=== PATIENT | male | born 1990 | race Caucasian/White ===

== ENCOUNTER 2016-08-08 15:53 | Inpatient (IN) | payer BC, MEDICAID, OTHER ==
[~2016-08-08] VITALS: Ht 182.9 cm; Wt 68.5 kg
[2016-08-08 16:47] LABS: Hematocrit 54.7 % (41.0-53.0); Mean Corpuscular Hemoglobin 31.3 pg (28.0-32.0); Mean Corpuscular Hgb Conc. 32.8 g/dL (32.0-36.0); Mean Corpuscular Volume 95.3 fL (80.0-100.0); Mean Platelet Volume 8.9 fL (7.4-10.4); Platelet Count (auto) 242 10^3/uL (140-450); Red Cell Distribution Width 11.8 % (11.6-16.0); SUSPECT VIEW TRANSMISSION; White Blood Cell 20.3 10^3/uL (4.4-10.8)
[2016-08-08 17:00] LABS: INR 1.11 (0.9-1.15); Partial Thromboplastin Time 26.5 sec (22.64-33.71); Prothrombin Time 11.4 sec (9.37-12.3)
[2016-08-08] MEDS ORDERED: SODIUM CHLORIDE 0.9% 1,000 ML IV ONE ×2 (17:00→21:00)
[2016-08-08] MEDS ORDERED: ADENOSINE 6 MG/2 ML INJ IV ONE ×3 (17:00→17:30)
[2016-08-08 17:01] LABS: Albumin 4.6 g/dL (3.4-5.0); BUN/Creatinine Ratio 13.6; Calcium 9.8 mg/dL (8.5-10.1); Metamyelocytes % 0; Myelocytes % 0; Promyelocytes % 0; Reactive Lymphocytes 0; Total Protein 8.5 g/dL (6.4-8.2)
[2016-08-08 18:47] LABS: Lactic Acid 2.6 mmol/L (0.4-2.0)
[2016-08-08 19:09] LABS: REFLEX LACTIC ACID YES OR NO YES
[2016-08-08] MEDS: SODIUM CHLORIDE 0.9% 1,000 ML IV SCH (21:02)
[2016-08-08] MEDS: ENOXAPARIN SOD 40 MG/0.4 ML SYRINGE SC SCH (21:11)
[2016-08-08] MEDS ORDERED: NITROGLYCERIN 0.4 MG SL TAB SL PRN (21:15)
[2016-08-08] MEDS ORDERED: LEVOFLOXACIN 500MG 100 ML IV ONE (21:15)
[2016-08-08] MEDS ORDERED: HYDROcodone-ACET 5/325MG TAB PO PRN (21:15)
[2016-08-08] MEDS ORDERED: MORPHINE SULF INJ 2 MG/ML SYRINGE 1ML IV PRN (21:15)
[2016-08-08] MEDS ORDERED: ACETAMINOPHEN 325 MG TAB PO PRN (21:15)
[2016-08-08] MEDS ORDERED: ONDANSETRON HCL 4 MG/2 ML VIAL IV PRN (21:15)
[2016-08-08] MEDS ORDERED: METOPROLOL TARTRATE 1MG/1ML-5ML VIAL IV ONE (21:15)
[2016-08-08] MEDS ORDERED: cefTRIAXone 1GM/50ML D5W 50 ML IV ONE (21:15)
[2016-08-08 21:47] LABS: Platelet Estimate Adequate; RBC Morphology Normal
[2016-08-08] MEDS: FAMOTIDINE 20 MG TAB PO SCH (21:51)
[2016-08-08 21:57] LABS: Urine Color Yellow (Yellow)
[2016-08-08 21:58] LABS: Urine Bilirubin Negative (Negative); Urine Blood Negative /uL (Negative); Urine Glucose Normal (Normal); Urine Ketone 4+ (Negative); Urine Nitrite Negative (Negative); Urine RBC 1 /hpf (0 - 3); Urine Squamous Epithelial Cell FEW /hpf (<5)
[2016-08-08 21:59] LABS: Urine Hyaline Cast MOD /lpf (0 - 2); Urine Mucus FEW (None Seen)
[2016-08-08 22:01] LABS: REFLEX LACTIC ACID YES OR NO NO
[2016-08-08] MEDS: MORPHINE SULF INJ 2 MG/ML SYRINGE 1ML IV PRN (22:05)
[2016-08-08 22:30] VITALS: BP 161/93
[2016-08-08 23:23] VITALS: BP 161/93
[2016-08-08 23:35] VITALS: BP 147/67
[2016-08-09] VITALS (8 sets, daily range): BP systolic 135–164; BP diastolic 63–106
[2016-08-09] MEDS: FAMOTIDINE 20 MG TAB PO SCH ×2 (08:57→21:27)
[2016-08-09] MEDS ORDERED: cefTRIAXone 1GM/50ML D5W 50 ML IV SCH (09:00)
[2016-08-09 09:07] LABS: Basophils # (auto) 0 uL; Basophils % (auto) 0.2 % (0.0-2.0); Eosinophils # (auto) 0.1 uL; Eosinophils % (auto) 0.6 % (0.0-7.0); Hematocrit 45.9 % (41.0-53.0); Hemoglobin 15.3 g/dL (13.5-17.5); Lymphocytes # (auto) 1.7 uL; Lymphocytes % (auto) 14.2 % (10.0-50.0); Mean Corpuscular Hemoglobin 31.8 pg (28.0-32.0); Mean Corpuscular Hgb Conc. 33.3 g/dL (32.0-36.0); Mean Corpuscular Volume 95.3 fL (80.0-100.0); Mean Platelet Volume 9.1 fL (7.4-10.4); Monocytes # (auto) 0.9 uL; Monocytes % (auto) 7.4 % (0.0-12.0); Neutrophils % (auto) 77.6 % (37.0-80.0); Platelet Count (auto) 167 10^3/uL (140-450); Red Cell Distribution Width 11.9 % (11.6-16.0); White Blood Cell 11.6 10^3/uL (4.4-10.8)
[2016-08-09] MEDS: MORPHINE SULF INJ 2 MG/ML SYRINGE 1ML IV PRN ×2 (09:12→16:19)
[2016-08-09 09:27] LABS: Albumin 3.5 g/dL (3.4-5.0); BUN/Creatinine Ratio 16.5; Calcium 8.2 mg/dL (8.5-10.1); Potassium 3.4 mmol/L (3.5-5.1); Total Protein 6.4 g/dL (6.4-8.2)
[2016-08-09] MEDS ORDERED: LEVOFLOXACIN 500MG 100 ML IV SCH (10:00)
[2016-08-09] MEDS: SODIUM CHLORIDE 0.9% 1,000 ML IV SCH ×2 (12:08→22:33)
[2016-08-09] MEDS ORDERED: POTASSIUM CHL 20MEQ/100ML 100 ML IV ONE (14:00)
[2016-08-09] MEDS ORDERED: LABETALOL HCL 5 MG/ML 4ML SYRINGE IV PRN (20:30)
[2016-08-09] MEDS: ENOXAPARIN SOD 40 MG/0.4 ML SYRINGE SC SCH (21:27)
[2016-08-09] MEDS: TEMAZEPAM 15 MG CAP PO PRN (22:50)
[2016-08-10 05:00] VITALS: BP 143/76
[2016-08-10 07:10] LABS: Basophils # (auto) 0 uL; Basophils % (auto) 0.5 % (0.0-2.0); Eosinophils # (auto) 0.2 uL; Hemoglobin 14.8 g/dL (13.5-17.5); Lymphocytes # (auto) 2.8 uL; Lymphocytes % (auto) 32.3 % (10.0-50.0); Mean Corpuscular Hemoglobin 31.6 pg (28.0-32.0); Mean Corpuscular Hgb Conc. 32.8 g/dL (32.0-36.0); Mean Corpuscular Volume 96.6 fL (80.0-100.0); Mean Platelet Volume 9.3 fL (7.4-10.4); Monocytes # (auto) 0.5 uL; Monocytes % (auto) 5.7 % (0.0-12.0); Neutrophils # (auto) 5.2 uL; Neutrophils % (auto) 59.5 % (37.0-80.0); Platelet Count (auto) 154 10^3/uL (140-450); Red Cell Distribution Width 12.3 % (11.6-16.0); White Blood Cell 8.7 10^3/uL (4.4-10.8)
[2016-08-10 07:19] LABS: Albumin 3.3 g/dL (3.4-5.0); BUN/Creatinine Ratio 15.5; Calcium 8.3 mg/dL (8.5-10.1); Potassium 3.6 mmol/L (3.5-5.1)
[2016-08-10 07:21] LABS: Bilirubin, Total 0.8 mg/dL (0.2-1.0); Total Protein 6.4 g/dL (6.4-8.2)
[2016-08-10 08:00] VITALS: BP 136/71
[2016-08-10 08:44] VITALS: BP 136/71
[2016-08-10] MEDS ORDERED: METOPROLOL TARTRATE 50 MG TAB PO ONE (09:15)
[2016-08-10] MEDS: PANTOPRAZOLE 40 MG TAB PO SCH (10:18)
[2016-08-10] MEDS: LISINOPRIL 10 MG TAB PO SCH (10:18)
[2016-08-10] MEDS: SODIUM CHLORIDE 0.9% 1,000 ML IV SCH ×2 (10:32→23:02)
[2016-08-10 13:00] VITALS: BP 147/71
[2016-08-10 17:26] VITALS: BP 149/74
[2016-08-10 22:00] VITALS: BP 148/72
[2016-08-10] MEDS: TEMAZEPAM 15 MG CAP PO PRN (23:49)
[2016-08-11 05:00] VITALS: BP 125/63
[2016-08-11 08:49] VITALS: BP 125/63
[2016-08-11 08:57] VITALS: BP 149/74
[2016-08-11] MEDS: PANTOPRAZOLE 40 MG TAB PO SCH (09:28)
[2016-08-11] MEDS: LISINOPRIL 10 MG TAB PO SCH (09:29)
[2016-08-11 10:31] VITALS: BP 149/84
== END 2016-08-11 09:50 | disposition home or self-care (01) | DRG 241 ==
LOC: ER 15:56 → TELE 15:57 → TELE-CENTR 22:12 → CENTRAL 08-11 02:34
PROVIDERS: ADMIT Internal Medicine; ATTEND Internal Medicine
DX: K29.70 Gastritis, unspecified, without bleeding (principal); E87.1 Hypo-osmolality and hyponatremia; E87.8 Other disorders of electrolyte and fluid balance, not elsewhere classified; E86.0 Dehydration; I10 Essential (primary) hypertension; F10.10 Alcohol abuse, uncomplicated; R07.89 Other chest pain; E87.6 Hypokalemia; F12.90 Cannabis use, unspecified, uncomplicated; F17.210 Nicotine dependence, cigarettes, uncomplicated; Z88.0 Allergy status to penicillin
CPT/HCPCS: 36415; 71010; 76705; 80053; 80320; 81001; 83605; 83690; 84443; 84484; 85007; 85025; 85027; 85379; 85610; 85730; 87040; 93005; 93306; 96361; 96365; 96375; 99291; G0434; J0153; J1956; J2405; J3480; J3490

== ENCOUNTER 2016-11-22 20:58 | Emergency (ER) | payer MEDICAID ==
[~2016-11-22] VITALS: Ht 182.9 cm; Wt 72.6 kg
[2016-11-22 21:54] VITALS: BP 115/55
== END 2016-11-23 00:31 | disposition left against medical advice (07) ==
LOC: ER 20:58
DX: S91.312A Laceration without foreign body, left foot, initial encounter (principal); W22.8XXA Striking against or struck by other objects, initial encounter; Y93.89 Activity, other specified; Y92.89 Other specified places as the place of occurrence of the external cause; Y99.8 Other external cause status; Z53.21 Procedure and treatment not carried out due to patient leaving prior to being seen by health care provider
CPT/HCPCS: 73630

== ENCOUNTER 2016-11-23 10:42 | Emergency (ER) | payer MEDICAID ==
[~2016-11-23] VITALS: Ht 185.4 cm; Wt 72.6 kg
[2016-11-23 12:26] VITALS: BP 109/57
[2016-11-23] MEDS ORDERED: KETOROLAC TROMETH 60MG/2ML VIAL IM ONE (13:00)
[2016-11-23] MEDS ORDERED: TETANUS-DIPTH-ACEL PERTUSSIS 0.5ML SYRG IM ONE (13:15)
== END 2016-11-23 13:34 | disposition home or self-care (01) ==
LOC: ER 10:42
DX: S91.302A Unspecified open wound, left foot, initial encounter (principal); S83.92XA Sprain of unspecified site of left knee, initial encounter; Z88.0 Allergy status to penicillin; F17.210 Nicotine dependence, cigarettes, uncomplicated; F12.10 Cannabis abuse, uncomplicated; W22.8XXA Striking against or struck by other objects, initial encounter; Y93.89 Activity, other specified; Y99.8 Other external cause status; Y92.89 Other specified places as the place of occurrence of the external cause
CPT/HCPCS: 90471; 90715; 96372; 99284; J1885

== ENCOUNTER 2017-08-01 10:07 | Emergency (ER) | payer MEDICAID ==
[~2017-08-01] VITALS: Ht 182.9 cm; Wt 72.6 kg
[2017-08-01 11:20] LABS: Basophils # (auto) 0.3 uL; Basophils % (auto) 1.9 % (0.0-2.0); Eosinophils # (auto) 0 uL; Hematocrit 48.3 % (41.0-53.0); Hemoglobin 16.5 g/dL (13.5-17.5); Lymphocytes # (auto) 1.3 uL; Lymphocytes % (auto) 7.5 % (10.0-50.0); Mean Corpuscular Hemoglobin 33.9 pg (28.0-32.0); Mean Corpuscular Hgb Conc. 34.2 g/dL (32.0-36.0); Mean Corpuscular Volume 98.9 fL (80.0-100.0); Monocytes # (auto) 0.6 uL; Monocytes % (auto) 3.6 % (0.0-12.0); Platelet Count (auto) 204 10^3/uL (140-450); Red Blood Cells 4.88 10^6/uL (4.5-5.90); Red Cell Distribution Width 12.5 % (11.8-14.3); White Blood Cell 17.2 10^3/uL (4.4-10.8)
[2017-08-01 12:08] LABS: Calcium 9.7 mg/dL (8.5-10.1); Potassium 4.1 mmol/L (3.5-5.1)
[2017-08-01 12:10] LABS: BUN/Creatinine Ratio 10.3
[2017-08-01 12:12] LABS: Albumin 4.6 g/dL (3.4-5.0); Magnesium 1.5 mg/dL (1.6-2.6)
[2017-08-01 12:14] LABS: Bilirubin, Total 1.2 mg/dL (0.2-1.0); Total Protein 8.4 g/dL (6.4-8.2)
[2017-08-01 13:45] LABS: Lactic Acid w/Reflex 6.4 mmol/L (0.4-2.0)
[2017-08-01] MEDS ORDERED: LORazepam 2MG/ML-1ML VIAL IV ONE (16:00)
[2017-08-01] MEDS ORDERED: THIAMINE INJ 100 MG, MULTIPLE VITAMIN 10 ML, FOLIC ACID 1 MG, MAGNESIUM SULF SDV 50% 8 ... IV SCH ×5 (18:00)
[2017-08-01 19:22] LABS: Alcohol, Urine < 3.0 mg/dL (0-5); Amphetamine Screen, Urine NEGATIVE (NEGATIVE); Barbiturate Scree,Urine NEGATIVE (NEGATIVE); Benzodiazephine Screen, Urine NEGATIVE (NEGATIVE); Cannabinoid Screen, Urine POSITIVE (NEGATIVE); Cocaine Screen, Urine NEGATIVE (NEGATIVE); Opiate Scree,Urine NEGATIVE (NEGATIVE); Phencyclidine Screen, Urine NEGATIVE (NEGATIVE)
[2017-08-01] MEDS ORDERED: HYDROcodone-ACET 5/325MG TAB PO ONE (21:15)
[2017-08-02 05:14] VITALS: BP 135/58
== END 2017-08-02 06:33 | disposition home or self-care (01) ==
LOC: ER 10:07
DX: R07.89 Other chest pain (principal); K29.20 Alcoholic gastritis without bleeding; R74.8 Abnormal levels of other serum enzymes; E83.42 Hypomagnesemia; F17.210 Nicotine dependence, cigarettes, uncomplicated; I10 Essential (primary) hypertension; F12.10 Cannabis abuse, uncomplicated; Z88.0 Allergy status to penicillin
CPT/HCPCS: 36415; 71046; 80053; 80307; 80320; 83605; 83690; 83735; 84484; 85025; 93005; 96365; 96366; 96375; 99285; J2060; J3411; J3475

== ENCOUNTER 2017-10-08 10:37 | Emergency (ER) | payer MEDICAID ==
[~2017-10-08] VITALS: Ht 182.9 cm; Wt 74.8 kg
[2017-10-08 10:56] VITALS: BP 137/95
== END 2017-10-08 12:32 | disposition home or self-care (01) ==
LOC: ER 10:37
DX: F31.9 Bipolar disorder, unspecified (principal); I10 Essential (primary) hypertension; F17.210 Nicotine dependence, cigarettes, uncomplicated; Z76.0 Encounter for issue of repeat prescription; Z88.0 Allergy status to penicillin

== ENCOUNTER 2017-11-06 10:49 | Emergency (ER) | payer MEDICAID, OTHER ==
[~2017-11-06] VITALS: Ht 182.9 cm; Wt 70.8 kg
[2017-11-06 11:16] VITALS: BP 143/74
[2017-11-06] MEDS ORDERED: LORazepam 0.5 MG TAB PO ONE (13:30)
== END 2017-11-06 13:48 | disposition home or self-care (01) ==
LOC: ER 10:49
DX: F41.9 Anxiety disorder, unspecified (principal); F32.9 Major depressive disorder, single episode, unspecified; I10 Essential (primary) hypertension; F17.210 Nicotine dependence, cigarettes, uncomplicated; F12.10 Cannabis abuse, uncomplicated; Z88.0 Allergy status to penicillin; Z76.0 Encounter for issue of repeat prescription

== ENCOUNTER 2017-11-12 12:52 | Emergency (ER) | payer OTHER ==
[~2017-11-12] VITALS: Ht 180.3 cm; Wt 74.8 kg
[2017-11-12 16:45] VITALS: BP 130/58
== END 2017-11-12 16:48 | disposition home or self-care (01) ==
LOC: ER 12:54
DX: F90.9 Attention-deficit hyperactivity disorder, unspecified type (principal); F17.210 Nicotine dependence, cigarettes, uncomplicated; I10 Essential (primary) hypertension; Z88.0 Allergy status to penicillin

== ENCOUNTER 2017-12-19 10:30 | Emergency (ER) | payer MEDICAID, OTHER ==
[~2017-12-19] VITALS: Ht 182.9 cm; Wt 77.1 kg
[2017-12-19 10:35] VITALS: BP 136/84
[2017-12-19] MEDS ORDERED: LORazepam 0.5 MG TAB PO ONE (11:15)
== END 2017-12-19 11:12 | disposition home or self-care (01) ==
LOC: ER 10:36
DX: F41.9 Anxiety disorder, unspecified (principal); F32.9 Major depressive disorder, single episode, unspecified; I10 Essential (primary) hypertension; F17.210 Nicotine dependence, cigarettes, uncomplicated; F12.10 Cannabis abuse, uncomplicated; Z88.0 Allergy status to penicillin

== ENCOUNTER 2017-12-21 08:01 | Emergency (ER) | payer MEDICAID, OTHER ==
[~2017-12-21] VITALS: Ht 182.9 cm; Wt 77.1 kg
[2017-12-21 08:08] VITALS: BP 149/81
[2017-12-21] MEDS ORDERED: IBUPROFEN 800 MG TAB PO ONE (09:15)
== END 2017-12-21 09:41 | disposition home or self-care (01) ==
LOC: ER 08:01
DX: S01.24XA Puncture wound with foreign body of nose, initial encounter (principal); I10 Essential (primary) hypertension; F17.210 Nicotine dependence, cigarettes, uncomplicated; Z88.0 Allergy status to penicillin; W54.0XXA Bitten by dog, initial encounter; Y93.89 Activity, other specified; Y92.89 Other specified places as the place of occurrence of the external cause; Y99.8 Other external cause status

== ENCOUNTER 2019-03-30 10:47 | Emergency (ER) | payer MEDICAID ==
[~2019-03-30] VITALS: Ht 182.9 cm; Wt 90.7 kg
[2019-03-30 10:57] VITALS: BP 134/79
== END 2019-03-30 11:31 | disposition home or self-care (01) ==
LOC: ER 10:54
DX: F41.9 Anxiety disorder, unspecified (principal); F32.9 Major depressive disorder, single episode, unspecified; I10 Essential (primary) hypertension; F17.210 Nicotine dependence, cigarettes, uncomplicated; F12.10 Cannabis abuse, uncomplicated

== ENCOUNTER → 2020-03-17 | Emergency (ER) | payer MEDICARE, MEDICAID ==
[~2020-03-17] VITALS: Ht 182.9 cm; Wt 81.6 kg
[2020-03-17 12:00] VITALS: BP 141/80
[2020-03-17 12:54] LABS: Basophils # (auto) 0.1 10 ^3/uL (0-0.2); Basophils % (auto) 0.5 % (0.0-2.0); Eosinophils # (auto) 0.1 10 ^3/uL (0-0.8); Eosinophils % (auto) 0.4 % (0.0-7.0); Hematocrit 51.9 % (41.0-53.0); Hemoglobin 16.8 g/dL (13.5-17.5); Lymphocytes # (auto) 1.1 10 ^3/uL (0.4-5.4); Lymphocytes % (auto) 7.4 % (10.0-50.0); Mean Corpuscular Hemoglobin 32.1 pg (28.0-32.0); Mean Corpuscular Hgb Conc. 32.3 g/dL (32.0-36.0); Mean Corpuscular Volume 99.4 fL (80.0-100.0); Monocytes # (auto) 0.7 10 ^3/uL (0-1.3); Monocytes % (auto) 4.9 % (0.0-12.0); Neutrophils # (auto) 13.1 10 ^3/uL (1.6-8.6); Neutrophils % (auto) 86.8 % (37.0-80.0); Platelet Count (auto) 250 10^3/uL (140-450); Red Blood Cells 5.22 10^6/uL (4.5-5.90); Red Cell Distribution Width 13.3 % (11.8-14.3); White Blood Cell 15.1 10^3/uL (4.4-10.8)
[2020-03-17 13:02] LABS: Albumin 4.4 g/dL (3.4-5.0); Calcium 8.7 mg/dL (8.5-10.1); Potassium 3.6 mmol/L (3.5-5.1)
[2020-03-17 13:06] LABS: BUN/Creatinine Ratio 13.3; Bilirubin, Total 0.5 mg/dL (0.2-1.0); Total Protein 8.4 g/dL (6.4-8.2)
== END | disposition home or self-care (01) ==
LOC: ER 11:32
DX: R56.9 Unspecified convulsions (principal); F17.210 Nicotine dependence, cigarettes, uncomplicated; I10 Essential (primary) hypertension; F41.9 Anxiety disorder, unspecified; F32.9 Major depressive disorder, single episode, unspecified; Z88.0 Allergy status to penicillin
CPT/HCPCS: 36415; 70450; 80053; 80320; 82962; 85025; 96365; 96366; 99285; J1953; J7030; J7060

== ENCOUNTER 2024-01-24 12:11 | Emergency (ER) | payer OTHER, MEDICAID ==
[~2024-01-24] VITALS: Ht 182.9 cm; Wt 90.9 kg
[2024-01-24 12:53] LABS: Basophils # (auto) 0.1 10 ^3/uL (0-0.2); Basophils % (auto) 0.4 % (0.0-2.0); Eosinophils # (auto) 0.1 10 ^3/uL (0-0.8); Eosinophils % (auto) 0.4 % (0.0-7.0); Hematocrit 45.2 % (41.0-53.0); Hemoglobin 15.7 g/dL (13.5-17.5); Lymphocytes # (auto) 1.8 10 ^3/uL (0.4-5.4); Mean Corpuscular Hemoglobin 32.6 pg (28.0-32.0); Mean Corpuscular Hgb Conc. 34.7 g/dL (32.0-36.0); Mean Corpuscular Volume 93.9 fL (80.0-100.0); Monocytes # (auto) 1.1 10 ^3/uL (0-1.3); Monocytes % (auto) 6.4 % (0.0-12.0); Neutrophils # (auto) 13.6 10 ^3/uL (1.6-8.6); Neutrophils % (auto) 81.8 % (37.0-80.0); Red Blood Cells 4.81 10^6/uL (4.5-5.90); Red Cell Distribution Width 13.2 % (11.8-14.3); White Blood Cell 16.6 10^3/uL (4.4-10.8)
[2024-01-24 13:10] LABS: Alanine Aminotransferase 24 U/L (7-40); Albumin 4.8 g/dL (3.2-4.8); Alkaline Phosphatase 69 U/L (46-116); Anion Gap 5 (5-15); Aspartate Aminotransferase 19 U/L (13-40); BUN/Creatinine Ratio 11.8 (10.0-20.0); Blood Urea Nitrogen 10 mg/dL (9-23); Calcium 9.5 mg/dL (8.7-10.4); Carbon Dioxide 27 mmol/L (20-30); Chloride 103 mmol/L (98-107); Creatine Kinase IFCC 429 U/L (46-171); Glucose 127 mg/dL (74-106); Potassium 3.5 mmol/L (3.5-5.1); Sodium 135 mmol/L (136-145)
[2024-01-24 13:11] LABS: Bilirubin, Total 0.7 mg/dL (0.2-1.0); Total Protein 7.1 g/dL (5.7-8.2)
[2024-01-24 13:13] LABS: Acetaminophen < 2.0 UG/ML (10.0-20.0); Salicylate < 3.0 mg/dL (2.8-20.0)
[2024-01-24] MEDS: HALOPERIDOL LACTATE 5 MG/ML INJ VIAL ONE (13:47)
[2024-01-24] MEDS: diphenhdrAMINE HCL 50 MG/1 ML VL ONE (13:47)
[2024-01-24] MEDS: LORazepam 2MG/ML-1ML VIAL ONE (13:47)
[2024-01-24] MEDS: LORazepam 2MG/ML-1ML VIAL IV ONE (13:49)
[2024-01-24] MEDS: diphenhdrAMINE HCL 50 MG/1 ML VL IV ONE (13:49)
[2024-01-24] MEDS: HALOPERIDOL LACTATE 5 MG/ML INJ VIAL IM ONE (13:49)
[2024-01-24 14:10] LABS: Urine Bacteria None Seen /hpf (None Seen)
[2024-01-24 14:22] LABS: Urine Blood Negative /uL (Negative); Urine Clarity Clear (Clear); Urine Color Light-Yellow (Yellow); Urine Protein, UAD Negative (Negative); Urine Specific Gravity 1.014 (1.001-1.035); Urine Urobilinogen Normal (Negative); Urine WBC <1 /hpf (0 - 3)
[2024-01-24 14:31] LABS: Amphetamine Screen, Urine Pos (NEGATIVE); Barbiturate Scree,Urine Neg (NEGATIVE); Benzodiazephine Screen, Urine Pos (NEGATIVE); Cannabinoid Screen, Urine Neg (NEGATIVE); Cocaine Screen, Urine Neg (NEGATIVE); Opiate Scree,Urine Neg (NEGATIVE); Phencyclidine Screen, Urine Neg (NEGATIVE)
[2024-01-24 19:20] VITALS: PULSE 95; RESP 20; O2SAT 97
[2024-01-25 07:15] VITALS: BP 111/60; PULSE 96; RESP 14; TEMP 97.9; O2SAT 99
[2024-01-25] MEDS ORDERED: hydrOXYzine 25 MG TAB or CAP PO PRN (10:15)
== END 2024-01-25 16:18 | disposition left against medical advice (07) ==
LOC: ER 12:11 → EDBD 12:11 → ER 01-25 16:18
DX: R45.851 Suicidal ideations (principal); F20.9 Schizophrenia, unspecified; F15.10 Other stimulant abuse, uncomplicated; F17.210 Nicotine dependence, cigarettes, uncomplicated; F41.9 Anxiety disorder, unspecified; F32.9 Major depressive disorder, single episode, unspecified; I10 Essential (primary) hypertension; Z91.148 Patient's other noncompliance with medication regimen for other reason; Z79.899 Other long term (current) drug therapy
CPT/HCPCS: 36415; 71045; 80053; 80307; 80320; 80329; 81001; 82550; 83605; 83735; 84484; 85025; 93005; 96372; 96374; 96375; 99285; J1200; J1630; J2060